=== PATIENT | male | born 1950 | race Hispanic/Latino ===

== ENCOUNTER 2017-07-13 22:48 | Inpatient (IN) | payer MEDICARE, OTHER ==
[~2017-07-13] VITALS: Ht 170.2 cm; Wt 70.3 kg
[2017-07-13] MEDS ORDERED: ACETAMINOPHEN 325 MG TAB ONE (23:51)
[2017-07-13] MEDS ORDERED: SODIUM CHLORIDE 0.9% 1000ML 2,000 ML IV ONE (23:51)
[2017-07-13] MEDS ORDERED: ONDANSETRON HCL MDV 20ML 2 MG/ML VIAL ONE (23:51)
[2017-07-13 23:54] LABS: APPEARANCE,URINE Cloudy (CLEAR); BASOPHILS % (AUTO) 0.5 % (0.0-5.0); BILIRUBIN,URINE Moderate (NEGATIVE); COLOR,URINE Dark Yellow (YELLOW); EOSINOPHILS % (AUTO) 0.2 % (0.0-8.0); GLUCOSE, URINE (UA) Negative (NEGATIVE); HEMATOCRIT 38.3 % (42-54); KETONES,URINE Negative (NEGATIVE); LEUKOCYTE ESTERASE ,URINE Small (NEGATIVE); LYMPHOCYTES % (AUTO) 12.3 % (21.0-51.0); MEAN CORPUSCULAR HEMOGLOBIN 30.8 pg (27.0-33.0); MEAN CORPUSCULAR HGB CONC 34.2 g/dL (32.0-36.0); MONOCYTES % (AUTO) 12.3 % (3.0-13.0); NEUTROPHILS % (AUTO) 74.7 % (40.0-77.0); NITRATE,URINE Negative (NEGATIVE); OCCULT BLOOD,URINE Moderate (NEGATIVE); PLATELET COUNT (AUTO) 213 K/uL (130-400); PROTEIN,URINE POS 1+ (NEGATIVE); RED BLOOD CELL COUNT(AUTO) 4.26 MIL/uL (4.50-6.20); RED CELL DISTRIBUTION WIDTH 14.1 % (11.0-15.5); WHITE BLOOD COUNT (AUTO) 13.6 K/uL (4.8-10.8)
[2017-07-14 00:02] LABS: CARBON DIOXIDE 24 mmol/L (21-32); CHLORIDE 102 mmol/L (101-111); GLOMERULAR FILTR. RATE CALC 79 mL/min (>60); GLUCOSE,RANDOM 113 mg/dL (70-105); POTASSIUM 3.7 mmol/L (3.5-5.1); SODIUM SERUM 138 mmol/L (136-145); UREA NITROGEN, BLOOD 32 mg/dL (7-18)
[2017-07-14 00:04] LABS: INR 0.97 (0.85-1.15); PARTIAL THROMBOPLASTIN TIME 29.8 SEC (26.3-35.5); PROTHROMBIN TIME 10.2 SEC (9.6-11.6)
[2017-07-14 00:11] LABS: BACTERIA,URINE Few /HPF (None Seen); MUCUS,URINE Many LPF (None Seen); SQUAMOUS EPITHELIAL CELL,UR Many /HPF (0-2)
[2017-07-14 00:27] LABS: ALANINE AMINOTRANSFERASE 306 U/L (12-78); ALBUMIN 2.3 g/dL (3.5-5.0); ASPARTATE AMINOTRANSFERASE 247 U/L (10-37); BILIRUBIN,TOTAL 1.5 mg/dL (0.2-1.0); CREATINE KINASE MB < 0.5 ng/mL (0.5-3.6); CREATINE KINASE, TOTAL 8 U/L (21-232); MYOGLOBIN 31 ng/mL (10-92); TOTAL PROTEIN, SERUM 7.2 g/dL (6.0-8.3)
[2017-07-14 01:12] LABS: TROPONIN I < 0.04 ng/mL (0.00-0.06)
[2017-07-14] MEDS ORDERED: IOPAMIDOL-370 75 ML VIAL IV ONE (01:30)
[2017-07-14] MEDS ORDERED: ZOSYN 3.375GM+NS 50ML 50 ML IV ONE (02:34)
[2017-07-14] MEDS ORDERED: ACETAMINOPHEN 325 MG TAB PO PRN (03:15)
[2017-07-14] MEDS ORDERED: MORPHINE SULFATE 4 MG/1ML SYG IV PRN (03:15)
[2017-07-14] MEDS ORDERED: ACETAMINOPHEN 650 MG SUPPOSITORY RC PRN (04:45)
[2017-07-14] MEDS: ZOSYN 3.375GM+NS 50ML 50 ML IV SCH ×3 (05:00→21:05)
[2017-07-14 08:30] VITALS: BP 127/65
[2017-07-14] MEDS ORDERED: ENOXAPARIN SODIUM 40 MG/0.4 ML SYRINGE SQ SCH (09:00)
[2017-07-14] MEDS ORDERED: PANTOPRAZOLE 40 MG/VIAL IVP SCH (09:00)
[2017-07-14] MEDS: SODIUM CHLORIDE 0.9% 1000ML 1,000 ML IV SCH ×3 (09:06→18:49)
[2017-07-14] MEDS ORDERED: METH500T6 PO (09:22)
[2017-07-14] MEDS ORDERED: DOCU-275 PO (09:22)
[2017-07-14 11:39] VITALS: BP 125/72
[2017-07-14 16:00] VITALS: BP 154/85
[2017-07-14 20:00] VITALS: BP 137/77
[2017-07-14 23:45] VITALS: BP 132/77
[2017-07-15] VITALS (26 sets, daily range): BP systolic 120–170; BP diastolic 63–87
[2017-07-15] MEDS: ZOSYN 3.375GM+NS 50ML 50 ML IV SCH ×4 (04:19→21:47)
[2017-07-15] MEDS: SODIUM CHLORIDE 0.9% 1000ML 1,000 ML IV SCH ×2 (04:19→16:14)
[2017-07-15 06:32] LABS: HEMATOCRIT 33.5 % (42-54); MEAN CORPUSCULAR HEMOGLOBIN 31.5 pg (27.0-33.0); MEAN CORPUSCULAR HGB CONC 34.8 g/dL (32.0-36.0); MEAN CORPUSCULAR VOLUME 90.5 fL (79-99); PLATELET COUNT (AUTO) 231 K/uL (130-400); RED BLOOD CELL COUNT(AUTO) 3.71 MIL/uL (4.50-6.20); RED CELL DISTRIBUTION WIDTH 14.3 % (11.0-15.5); WHITE BLOOD COUNT (AUTO) 12.6 K/uL (4.8-10.8)
[2017-07-15 06:40] LABS: CREATININE 0.9 mg/dL (0.5-1.5); POTASSIUM 3.9 mmol/L (3.5-5.1)
[2017-07-15] MEDS: PANTOPRAZOLE SODIUM 40 MG TABLET.DR PO SCH (09:00)
[2017-07-15] MEDS ORDERED: GLYCOPYRROLATE 0.2 MG/ML 5 ML VIAL ONE (12:45)
[2017-07-15] MEDS ORDERED: DEXAMETHASONE SOD PHOSPHATE 10MG/ML 1ML VIAL ONE (12:45)
[2017-07-15] MEDS ORDERED: LIDOCAINE PF 2% 5ML ABBOJECT ONE (12:45)
[2017-07-15] MEDS ORDERED: SUCCINYLCHOLINE 200MG/10ML SYR ONE (12:45)
[2017-07-15] MEDS ORDERED: PROPOFOL 10 MG/ML 20ML VIAL IV ONE (12:46)
[2017-07-15] MEDS ORDERED: MIDAZOLAM HCL 1 MG/ML 2ML VIAL ONE (12:46)
[2017-07-15] MEDS ORDERED: FENTANYL CITRATE PF 50 MCG/1 ML 2ML VIAL ONE ×2 (12:46→13:23)
[2017-07-15] MEDS ORDERED: LIDOCAINE HCL/EPINEPHRINE 50 ML VIAL IJ ONE (13:21)
[2017-07-15] MEDS ORDERED: BUPIVACAINE/PF 0.25% 30ML VIAL IJ ONE (13:21)
[2017-07-15] MEDS ORDERED: BACITRACIN 50,000 UNIT VIAL ONE (13:24)
[2017-07-15] MEDS ORDERED: IPRATROPIUM/ALBUTEROL SULFATE 3 ML SOLUTION IH ONE (14:39)
[2017-07-15] MEDS ORDERED: MEPERIDINE-PF 25 MG/ML SYG ONE ×2 (14:45→14:56)
[2017-07-15] MEDS ORDERED: KETOROLAC TROMETHAMINE 15MG/ML ONE (17:15)
[2017-07-15] MEDS ORDERED: KETOROLAC TROMETHAMINE 15MG/ML IV PRN (17:15)
[2017-07-16] VITALS: BP 122/70
[2017-07-16] MEDS ORDERED: VANCOMYCIN PROTOCOL PER PHARMACY IV SCH (02:15)
[2017-07-16] MEDS: VANCOMYCIN 1GM+NS 250ML 250 ML IV SCH ×2 (03:11→14:01)
[2017-07-16 04:00] VITALS: BP 116/67
[2017-07-16 05:18] LABS: HEMATOCRIT 33.3 % (42-54); MEAN CORPUSCULAR HEMOGLOBIN 31.7 pg (27.0-33.0); MEAN CORPUSCULAR HGB CONC 35.1 g/dL (32.0-36.0); MEAN CORPUSCULAR VOLUME 90.4 fL (79-99); PLATELET COUNT (AUTO) 312 K/uL (130-400); RED BLOOD CELL COUNT(AUTO) 3.68 MIL/uL (4.50-6.20); RED CELL DISTRIBUTION WIDTH 14.2 % (11.0-15.5); WHITE BLOOD COUNT (AUTO) 20.1 K/uL (4.8-10.8)
[2017-07-16 05:25] LABS: ALBUMIN 1.8 g/dL (3.5-5.0); BILIRUBIN,DIRECT 0.5 mg/dL (0.0-0.3); BILIRUBIN,TOTAL 1.3 mg/dL (0.2-1.0); CREATININE 0.9 mg/dL (0.5-1.5); MAGNESIUM 1.4 mg/dL (1.80-2.40); POTASSIUM 3.6 mmol/L (3.5-5.1); TOTAL PROTEIN, SERUM 6.1 g/dL (6.0-8.3)
[2017-07-16] MEDS: ZOSYN 3.375GM+NS 50ML 50 ML IV SCH ×3 (05:32→20:01)
[2017-07-16] MEDS: SODIUM CHLORIDE 0.9% 1000ML 1,000 ML IV SCH ×2 (05:35→20:01)
[2017-07-16 07:29] VITALS: BP 137/75
[2017-07-16] MEDS: PANTOPRAZOLE SODIUM 40 MG TABLET.DR PO SCH (09:16)
[2017-07-16] MEDS ORDERED: LIDOCAINE HCL-MPF 1% 2ML VIAL IVP PRN ×2 (10:00)
[2017-07-16] MEDS ORDERED: POTASSIUM CHLORIDE 10% ELIXIR 20 MEQ/15 ML UDCUP PO PRN ×2 (10:00)
[2017-07-16] MEDS ORDERED: MAGNESIUM 2GM PREMIX 50ML 50 ML IV SCH (10:00)
[2017-07-16] MEDS ORDERED: POTASSIUM CHLORIDE 20 MEQ ERTAB PO PRN (10:00)
[2017-07-16] MEDS ORDERED: POTASSIUM CHLORIDE 20MEQ/100ML 100 ML IV PRN ×2 (10:00)
[2017-07-16 11:36] VITALS: BP 145/64
[2017-07-16] MEDS: POTASSIUM CHLORIDE 20 MEQ ERTAB PO PRN ×2 (11:55→17:08)
[2017-07-16] MEDS: ENOXAPARIN SODIUM 40 MG/0.4 ML SYRINGE SQ SCH (11:55)
[2017-07-16] MEDS: LACTULOSE 20 GM/30 ML UDCUP PO PRN ×2 (11:55→17:08)
[2017-07-16 16:15] VITALS: BP 140/73
[2017-07-16 19:55] VITALS: BP 146/74
[2017-07-16] MEDS: DOCUSATE SODIUM 100 MG CAP PO SCH (20:01)
[2017-07-17 00:37] VITALS: BP 151/77
[2017-07-17] MEDS: SODIUM CHLORIDE 0.9% 1000ML 1,000 ML IV SCH ×3 (01:15→18:05)
[2017-07-17 04:31] VITALS: BP 155/70
[2017-07-17] MEDS: ZOSYN 3.375GM+NS 50ML 50 ML IV SCH (04:41)
[2017-07-17] MEDS: TRAMADOL HCL 50 MG TABLET PO PRN ×2 (05:26→19:00)
[2017-07-17 05:34] LABS: HEMATOCRIT 30.7 % (42-54); MEAN CORPUSCULAR HEMOGLOBIN 31.1 pg (27.0-33.0); MEAN CORPUSCULAR HGB CONC 34.6 g/dL (32.0-36.0); MEAN CORPUSCULAR VOLUME 89.7 fL (79-99); PLATELET COUNT (AUTO) 354 K/uL (130-400); RED BLOOD CELL COUNT(AUTO) 3.42 MIL/uL (4.50-6.20); RED CELL DISTRIBUTION WIDTH 14.1 % (11.0-15.5); WHITE BLOOD COUNT (AUTO) 23.1 K/uL (4.8-10.8)
[2017-07-17 05:39] LABS: CREATININE 0.7 mg/dL (0.5-1.5); POTASSIUM 3.7 mmol/L (3.5-5.1)
[2017-07-17] MEDS: POTASSIUM CHLORIDE 20 MEQ ERTAB PO PRN (06:10)
[2017-07-17 07:39] VITALS: BP 118/68
[2017-07-17] MEDS: ENOXAPARIN SODIUM 40 MG/0.4 ML SYRINGE SQ SCH (08:57)
[2017-07-17] MEDS: DOCUSATE SODIUM 100 MG CAP PO SCH ×2 (08:57→20:06)
[2017-07-17] MEDS: PANTOPRAZOLE SODIUM 40 MG TABLET.DR PO SCH (08:57)
[2017-07-17 10:52] VITALS: BP 125/66
[2017-07-17] MEDS: LEVOFLOXACIN 500 MG TABLET PO SCH (12:40)
[2017-07-17] MEDS ORDERED: LEVO500T2 PO (14:31)
[2017-07-17] MEDS ORDERED: PANT40TA PO (14:31)
[2017-07-17] MEDS ORDERED: TRAM50TA4 PO (14:31)
[2017-07-17 16:33] VITALS: BP 123/75
[2017-07-17 19:01] VITALS: BP 135/76
[2017-07-18 00:18] VITALS: BP 135/74
[2017-07-18 04:51] VITALS: BP 130/82
[2017-07-18] MEDS: TRAMADOL HCL 50 MG TABLET PO PRN (07:00)
[2017-07-18 07:44] VITALS: BP 122/80
[2017-07-18] MEDS: SODIUM CHLORIDE 0.9% 1000ML 1,000 ML IV SCH ×2 (08:07→17:18)
[2017-07-18] MEDS: PANTOPRAZOLE SODIUM 40 MG TABLET.DR PO SCH (09:26)
[2017-07-18] MEDS: DOCUSATE SODIUM 100 MG CAP PO SCH ×2 (09:26→19:42)
[2017-07-18] MEDS: LEVOFLOXACIN 500 MG TABLET PO SCH (09:26)
[2017-07-18] MEDS: ENOXAPARIN SODIUM 40 MG/0.4 ML SYRINGE SQ SCH (09:27)
[2017-07-18 10:01] LABS: BASOPHILS % (AUTO) 0.5 % (0.0-5.0); MEAN CORPUSCULAR HGB CONC 35.2 g/dL (32.0-36.0); MEAN CORPUSCULAR VOLUME 90.8 fL (79-99); MONOCYTES % (AUTO) 5.4 % (3.0-13.0); NEUTROPHILS % (AUTO) 88.1 % (40.0-77.0); PLATELET COUNT (AUTO) 404 K/uL (130-400); RED CELL DISTRIBUTION WIDTH 14.1 % (11.0-15.5); WHITE BLOOD COUNT (AUTO) 24.2 K/uL (4.8-10.8)
[2017-07-18 10:08] LABS: CREATININE 0.8 mg/dL (0.5-1.5); POTASSIUM 3.9 mmol/L (3.5-5.1)
[2017-07-18 11:19] VITALS: BP 117/73
[2017-07-18 16:17] VITALS: BP 148/91
[2017-07-18] MEDS: LEVOFLOXACIN 500 MG/D5W 100 ML 100 ML IV SCH (16:54)
[2017-07-18 20:00] VITALS: BP 117/71
[2017-07-19] VITALS: BP 132/67
[2017-07-19] MEDS: SODIUM CHLORIDE 0.9% 1000ML 1,000 ML IV SCH ×2 (03:17→09:22)
[2017-07-19 04:00] VITALS: BP 125/69
[2017-07-19 05:53] LABS: BASOPHILS % (AUTO) 0.3 % (0.0-5.0); EOSINOPHILS % (AUTO) 0.1 % (0.0-8.0); HEMATOCRIT 30.1 % (42-54); LYMPHOCYTES % (AUTO) 6.1 % (21.0-51.0); MEAN CORPUSCULAR HEMOGLOBIN 31.7 pg (27.0-33.0); MEAN CORPUSCULAR HGB CONC 35.2 g/dL (32.0-36.0); MEAN CORPUSCULAR VOLUME 90.1 fL (79-99); MONOCYTES % (AUTO) 6.3 % (3.0-13.0); NEUTROPHILS % (AUTO) 87.2 % (40.0-77.0); PLATELET COUNT (AUTO) 512 K/uL (130-400); RED BLOOD CELL COUNT(AUTO) 3.34 MIL/uL (4.50-6.20); WHITE BLOOD COUNT (AUTO) 18.9 K/uL (4.8-10.8)
[2017-07-19 06:19] LABS: CREATININE 0.8 mg/dL (0.5-1.5); POTASSIUM 3.6 mmol/L (3.5-5.1)
[2017-07-19] MEDS: POTASSIUM CHLORIDE 20 MEQ ERTAB PO PRN ×2 (06:25→17:10)
[2017-07-19 07:54] VITALS: BP 122/69
[2017-07-19] MEDS: DOCUSATE SODIUM 100 MG CAP PO SCH ×2 (09:21→20:46)
[2017-07-19] MEDS: PANTOPRAZOLE SODIUM 40 MG TABLET.DR PO SCH (09:21)
[2017-07-19] MEDS: ENOXAPARIN SODIUM 40 MG/0.4 ML SYRINGE SQ SCH (09:21)
[2017-07-19 11:36] VITALS: BP 132/68
[2017-07-19 16:13] VITALS: BP 117/68
[2017-07-19] MEDS: LEVOFLOXACIN 500 MG/D5W 100 ML 100 ML IV SCH (17:09)
[2017-07-19] MEDS: TRAMADOL HCL 50 MG TABLET PO PRN (18:39)
[2017-07-19 20:00] VITALS: BP 115/67
[2017-07-20] VITALS: BP 109/59
[2017-07-20 04:00] VITALS: BP 110/57
[2017-07-20 04:59] LABS: HEMATOCRIT 27.8 % (42-54); MEAN CORPUSCULAR HEMOGLOBIN 31.1 pg (27.0-33.0); MEAN CORPUSCULAR HGB CONC 34.4 g/dL (32.0-36.0); MEAN CORPUSCULAR VOLUME 90.4 fL (79-99); PLATELET COUNT (AUTO) 534 K/uL (130-400); RED BLOOD CELL COUNT(AUTO) 3.08 MIL/uL (4.50-6.20); RED CELL DISTRIBUTION WIDTH 13.9 % (11.0-15.5); WHITE BLOOD COUNT (AUTO) 15.8 K/uL (4.8-10.8)
[2017-07-20 05:15] LABS: ALBUMIN 1.7 g/dL (3.5-5.0); BILIRUBIN,TOTAL 0.7 mg/dL (0.2-1.0); CREATININE 0.7 mg/dL (0.5-1.5); POTASSIUM 3.8 mmol/L (3.5-5.1); TOTAL PROTEIN, SERUM 6.1 g/dL (6.0-8.3)
[2017-07-20] MEDS: TRAMADOL HCL 50 MG TABLET PO PRN (06:27)
[2017-07-20 07:50] VITALS: BP 119/67
[2017-07-20] MEDS: PANTOPRAZOLE SODIUM 40 MG TABLET.DR PO SCH (09:35)
[2017-07-20] MEDS: DOCUSATE SODIUM 100 MG CAP PO SCH (09:35)
[2017-07-20] MEDS: ENOXAPARIN SODIUM 40 MG/0.4 ML SYRINGE SQ SCH (09:36)
[2017-07-20 11:29] VITALS: BP 112/67
== END 2017-07-20 13:27 | disposition home or self-care (01) | DRG 854 ==
LOC: EDH 22:48 → EDHIP 22:49 → 4AH 07-14 08:50
PROVIDERS: ADMIT Family Medicine; ATTEND Family Medicine
PROC: 0FT44ZZ Resection of Gallbladder, Percutaneous Endoscopic Approach (ICD-10-PCS; principal; 2017-07-15 13:13)
DX: A41.59 Other Gram-negative sepsis (principal); E44.0 Moderate protein-calorie malnutrition; K81.0 Acute cholecystitis; N39.0 Urinary tract infection, site not specified; E86.0 Dehydration; G89.29 Other chronic pain; F17.210 Nicotine dependence, cigarettes, uncomplicated; B96.20 Unspecified Escherichia coli [E. coli] as the cause of diseases classified elsewhere; K57.90 Diverticulosis of intestine, part unspecified, without perforation or abscess without bleeding; Z90.49 Acquired absence of other specified parts of digestive tract; Z68.24 Body mass index [BMI] 24.0-24.9, adult
CPT/HCPCS: 36415; 71045; 74177; 80048; 80053; 80076; 81001; 82550; 82553; 83605; 83690; 83735; 83874; 84484; 85025; 85027; 85610; 85730; 87040; 87088; 87186; 88304; 93005; 94640; C9113; J0330; J1100; J1650; J1885; J1956; J2001; J2175; J2250; J2543; J2704; J3010; J3370; J3475; J3490; J7030; Q9967